=== PATIENT | male | born 1965 | race African-American/Black ===

== ENCOUNTER 2021-07-26 09:25 | Emergency (ER) | payer BC ==
[~2021-07-26] VITALS: Ht 180.3 cm; Wt 133.8 kg
[2021-07-26] MEDS ORDERED: CIPROFLOXACIN500 M1 PO (12:11)
[2021-07-26 13:34] VITALS: BP 134/84
== END 2021-07-26 13:36 | disposition home or self-care (01) ==
LOC: ER 09:25
DX: R33.9 Retention of urine, unspecified (principal); I10 Essential (primary) hypertension; Z85.46 Personal history of malignant neoplasm of prostate; Z86.16 Personal history of COVID-19